=== PATIENT | female | born 1960 | race Caucasian/White ===

== ENCOUNTER 2021-04-03 11:14 | Emergency (ER) | payer OTHER, SELFPAY ==
[~2021-04-03] VITALS: Ht 162.6 cm; Wt 75.9 kg
[2021-04-03 15:41] VITALS: BP 113/59
== END 2021-04-03 16:30 | disposition home or self-care (01) ==
LOC: M ED 11:14
DX: U07.1 COVID-19 (principal)

== ENCOUNTER → 2021-05-01 | Outpatient (CLI) | payer OTHER ==
--- NOTE | 2021-05-01 12:52 | REPMRS ---
Patient History The patient states she had a clinical breast exam in April 2021. Patient is postmenopausal and had first child at age 41. Family history of breast cancer at age 68 in paternal grandmother. Patient states no breast complaints today. Patient has signed MRS History Sheet. Digital Woman Screen Mammo: May 01, 2021 - Exam #: [id number] Bilateral CC and MLO view(s) were taken. Technologist: Gabriella Lyn, Technologist Prior study comparison: March 17, 2020, digital mammo diagnostic bilateral, performed at [facility]. August 30, 2016, bilateral digital mammo screening bilat, performed at [facility]. August 25, 2015, bilateral digital mammo screening bilat, performed at [facility]. FINDINGS: There are scattered fibroglandular densities. Screening. Digital screening (2D) mammography was performed bilaterally in the CC and MLO projections. Additionally, breast tomosynthesis (3D mammography) was performed bilaterally in the CC and MLO projections. Todays exam was compared to the prior exam/exams. By history, the patient has no complaints of a palpable breast abnormality or other significant breast complaints. The Volpara volumetric breast density category is B, there are scattered areas of fibroglandular densities. The breasts are unchanged in size and shape. There are no marissa-soft tissue densities or spiculated masses. There is no internal architectural distortion. There are no suspicious marissa-calcific clusters. Skin thickening or nipple retraction is not present. IMPRESSION: BI-RADS Category 2- Benign Findings. There is no evidence of malignant alteration of the breasts. Followup examination recommended in one year. The lifetime Tyrer-Cuzick score is 16.1% This mammogram was read with the assistance of [employer],an FDA approved computer aided detection system for mammography. Negative x-ray reports should not delay surgical consultation if a dominant or clinically suspicious mass is present. Not all breast cancers can be identified by mammography. Therefore, we recommend that you continue to perform regular breast self-examination and physical examination and then promptly contact your physician of any concerns or changes. Adenosis and dense breasts may obscure an underlying neoplasm. No significant changes when compared with prior studies. Assessment: BI-RADS/ACR category 2 mammogram. Benign Findings. Recommendation Routine screening mammogram of both breasts in 1 year. Electronically Signed By: Poli Jacobson MD 05/01/21 [id number]
== END ==
LOC: M WHC 08:43 → EDUNIT# 09:00
PROVIDERS: ATTEND Advanced Practice Midwife
DX: Z12.31 Encounter for screening mammogram for malignant neoplasm of breast (principal); Z80.3 Family history of malignant neoplasm of breast

== ENCOUNTER → 2021-05-01 | Outpatient (REF) | payer OTHER | LOC: M SFHCWAGY 13:17 | PROVIDERS: ATTEND Advanced Practice Midwife | DX: Z01.419 Encounter for gynecological examination (general) (routine) without abnormal findings (principal) | CPT/HCPCS: 87624; G0123 ==